=== PATIENT | female | born 1995 | race African-American/Black ===

== ENCOUNTER 2017-05-12 12:06 | Emergency (ER) | payer SELFPAY ==
[~2017-05-12 12:06] MED LIST: AMOXICILLIN500 M1 PO; BACTRIM DS TABL1 TA1 PO; BENZOCAINE59.7 GM MT; BIRTH CONTROL PILL PO; CHILDREN'S1 MG/1 M6 PO; CLARITIN D PO; DELSYM30 MG/5 ML PO; FLAGYL PO; FLEXERIL PO; IBUPROFEN PO; LAMICTAL25 MG PO; LOW OGESTREL; MELATONIN5 M2 PO; MOTRIN600 MG PO; NO MEDICATIONS; PEPCID AC20 M2 PO; PHENERGAN PO; PHENERGAN25 M1 PO; PHENERGAN25 MG PO; PREDNISONE PO; ROBITUSSIN-DM118 M1 PO; RONDEC-DM SYRU120 ML PO; SPIRONOLACTONE50 MG PO; TYLENOL #3 PO; VIBRAMYCIN100 M1 PO; VITAMIN D; VITAMIN D-32000 UNIT PO; VITAMIN D2400 UNIT PO; ZYRTEC-D TABLE1 EACH PO
[2017-05-12 12:35] LABS: URINE SOURCE CLEAN CATCH
[2017-05-12 12:38] LABS: URINE APPEARANCE CLEAR; URINE BILIRUBIN NEG (NEG); URINE BLOOD NEG (NEG); URINE COLOR YELLOW; URINE GLUCOSE NEG (NORM); URINE KETONE NEG (NEG); URINE LEUKOCYTE ESTERASE TRACE (NEG); URINE NITRATE NEG (NEG); URINE PROTEIN NEG (NEG); URINE UROBILINOGEN 0.2 MG/DL (NORM)
[2017-05-12 12:39] LABS: MICRO INDICATED? YES
[2017-05-12 12:44] LABS: CULTURE INDICATED? YES; URINE BACTERIA 1+ (NEG)
[2017-05-12 12:45] LABS: URINE MUCUS PRESENT; URINE SQUAMOUS EPITHELIAL CELL FEW /[HPF]; URINE TRANSITIONAL EPI CELLS OCCAS /[HPF]
[2017-05-12] MEDS ORDERED: MACROBID100 M1 PO (13:55)
[2017-05-14 09:03] LABS: CHLAMYDIA TRACH Detected (Not Detected); N GONOR Detected (Not Detected)
== END 2017-05-12 13:54 | disposition home or self-care (01) ==
LOC: SED 12:06
PROVIDERS: Nurse Practitioner Family
DX: N76.0 Acute vaginitis (principal); N30.00 Acute cystitis without hematuria; F17.210 Nicotine dependence, cigarettes, uncomplicated
CPT/HCPCS: 81003; 84703; 87086; 87210; 87491; 87591; 87808; 87905; 96372; 99283; J0696